=== PATIENT | male | born 1975 | race Two or more races ===

== ENCOUNTER 2021-12-20 05:32 | Emergency (ER) | payer MEDICAID ==
[~2021-12-20] VITALS: Ht 182.9 cm; Wt 79.8 kg
[2021-12-20 06:16] LABS: Basophils # (auto) 0 10 ^3/uL (0-0.2); Basophils % (auto) 0.3 % (0.0-2.0); Eosinophils # (auto) 0.2 10 ^3/uL (0-0.8); Eosinophils % (auto) 1.7 % (0.0-7.0); Hematocrit 43.2 % (41.0-53.0); Lymphocytes # (auto) 1.6 10 ^3/uL (0.4-5.4); Lymphocytes % (auto) 14.8 % (10.0-50.0); Mean Corpuscular Hemoglobin 31.9 pg (28.0-32.0); Mean Corpuscular Hgb Conc. 34.6 g/dL (32.0-36.0); Mean Corpuscular Volume 92.2 fL (80.0-100.0); Monocytes # (auto) 0.5 10 ^3/uL (0-1.3); Monocytes % (auto) 4.5 % (0.0-12.0); Neutrophils # (auto) 8.8 10 ^3/uL (1.6-8.6); Neutrophils % (auto) 78.7 % (37.0-80.0); Nucleated Red Blood Cells % 0.1 %; Red Blood Cells 4.69 10^6/uL (4.5-5.90); Red Cell Distribution Width 11.8 % (11.8-14.3); White Blood Cell 11.1 10^3/uL (4.4-10.8)
[2021-12-20 06:27] VITALS: BP 133/89
[2021-12-20 06:43] LABS: Albumin 3.9 g/dL (3.4-5.0); BUN/Creatinine Ratio 5.4; Calcium 9.2 mg/dL (8.5-10.1); Magnesium 2.1 mg/dL (1.6-2.6); Potassium 3.7 mmol/L (3.5-5.1)
[2021-12-20 06:46] LABS: Bilirubin, Total 1.5 mg/dL (0.2-1.0); Total Protein 7.4 g/dL (6.4-8.2)
[2021-12-20] MEDS ORDERED: ASPirin 81 mg TAB PO ONE (07:30)
[2021-12-20] MEDS ORDERED: methylPREDNISolone SOD SUCC 125 MG/2 ML VL IV ONE (07:45)
[2021-12-20] MEDS ORDERED: cefTRIAXone 1GM/50ML D5W 50 ML IV ONE (07:45)
[2021-12-20 09:16] LABS: Urine Bacteria NONE SEEN /hpf (None Seen); Urine Blood Negative /uL (Negative); Urine Specific Gravity 1.003 (1.001-1.035); Urine WBC <1 /hpf (0 - 3)
[2021-12-20] MEDS ORDERED: CEPH-509 PO (09:54)
[2021-12-20] MEDS ORDERED: HYDR2.5L TOP (09:54)
[2021-12-20] MEDS ORDERED: CLIN300C8 PO (09:54)
== END 2021-12-20 10:23 | disposition home or self-care (01) ==
LOC: ER 05:32
DX: I10 Essential (primary) hypertension (principal); R21 Rash and other nonspecific skin eruption; R07.89 Other chest pain; N45.1 Epididymitis
CPT/HCPCS: 36415; 71250; 76870; 80053; 81001; 83735; 83880; 84484; 85025; 93005; 96365; 96375; 99285; J0696; J2930

== ENCOUNTER 2022-01-24 06:17 | Emergency (ER) | payer MEDICAID ==
[~2022-01-24] VITALS: Ht 182.9 cm; Wt 79.4 kg
[~2022-01-24 06:17] MED LIST: CEPH-509 PO; CLIN300C8 PO; HYDR2.5L TOP
[2022-01-24] MEDS ORDERED: diphenhdrAMINE HCL 50 MG/1 ML VL IV ONE (06:30)
[2022-01-24] MEDS ORDERED: methylPREDNISolone SOD SUCC 125 MG/2 ML VL IV ONE (06:30)
[2022-01-24] MEDS ORDERED: EPINEPHrine HCL 1 MG/1 ML AMP SC ONE (06:30)
[2022-01-24] MEDS ORDERED: SODIUM CHLORIDE 0.9% 1,000 ML IV ONE (07:00)
[2022-01-24] MEDS ORDERED: KETOROLAC TROMETH 30 MG/ML 1ML VIAL IV ONE (07:45)
[2022-01-24 07:56] LABS: Basophils # (auto) 0 10 ^3/uL (0-0.2); Basophils % (auto) 0.3 % (0.0-2.0); Eosinophils # (auto) 0.3 10 ^3/uL (0-0.8); Eosinophils % (auto) 2.3 % (0.0-7.0); Hematocrit 38.2 % (41.0-53.0); Hemoglobin 13.1 g/dL (13.5-17.5); Lymphocytes # (auto) 1.9 10 ^3/uL (0.4-5.4); Lymphocytes % (auto) 16.5 % (10.0-50.0); Mean Corpuscular Hgb Conc. 34.4 g/dL (32.0-36.0); Mean Corpuscular Volume 93.2 fL (80.0-100.0); Monocytes # (auto) 0.7 10 ^3/uL (0-1.3); Monocytes % (auto) 5.9 % (0.0-12.0); Neutrophils # (auto) 8.6 10 ^3/uL (1.6-8.6); Nucleated Red Blood Cells % 0.1 %; Red Cell Distribution Width 12.3 % (11.8-14.3); White Blood Cell 11.5 10^3/uL (4.4-10.8)
[2022-01-24 08:16] LABS: INR 0.97 (0.9-1.15); Partial Thromboplastin Time 25.5 sec (23.6-33.0)
[2022-01-24 08:23] LABS: Albumin 3.5 g/dL (3.4-5.0); Calcium 8.5 mg/dL (8.5-10.1); Potassium 3.5 mmol/L (3.5-5.1)
[2022-01-24 08:26] LABS: BUN/Creatinine Ratio 13.6; Bilirubin, Total 0.5 mg/dL (0.2-1.0); Total Protein 7.2 g/dL (6.4-8.2)
[2022-01-24 10:00] VITALS: BP 137/99
[2022-01-24] MEDS ORDERED: PRED20TA2 PO (11:21)
[2022-01-24] MEDS ORDERED: PANT40TA2 PO (11:21)
== END 2022-01-24 12:05 | disposition home or self-care (01) ==
LOC: ER 06:17
DX: T78.40XA Allergy, unspecified, initial encounter (principal); I10 Essential (primary) hypertension; Z79.2 Long term (current) use of antibiotics; Z79.899 Other long term (current) drug therapy; Y92.89 Other specified places as the place of occurrence of the external cause
CPT/HCPCS: 36415; 71045; 80053; 84484; 85025; 85610; 85730; 96361; 96372; 96374; 96375; 99285; J0171; J1200; J1885; J2930; J7030

== ENCOUNTER → 2023-03-07 | Outpatient (CLI) | payer MEDICAID ==
[~2023-03-07] MED LIST changes: +CLIN300C70 PO; -CLIN300C8 PO; +IOHEXOL 350 MG/ML 100ML IJ ONE; +PANT40TA2 PO; +PRED20TA2 PO
[2023-03-07 15:31] VITALS: BP 103/75; PULSE 76; RESP 16; O2SAT 95
[2023-03-07 15:46] VITALS: BP 114/78; PULSE 84; RESP 16; O2SAT 95
== END | disposition home or self-care (01) ==
LOC: Rad HDHVI 15:05
PROVIDERS: ATTEND Internal Medicine Cardiovascular Disease
DX: R06.02 Shortness of breath (principal); R00.2 Palpitations; I20.0 Unstable angina; I26.99 Other pulmonary embolism without acute cor pulmonale
CPT/HCPCS: 71275; 93306; G0463; Q9967

== ENCOUNTER → 2023-03-27 | Outpatient (CLI) | payer MEDICAID ==
[~2023-03-27] VITALS: Ht 182.9 cm; Wt 81.6 kg
[~2023-03-27] MED LIST changes: -IOHEXOL 350 MG/ML 100ML IJ ONE
== END | disposition home or self-care (01) ==
LOC: Rad HDHVI 12:53
PROVIDERS: ATTEND Internal Medicine Cardiovascular Disease
DX: R00.2 Palpitations (principal); R06.02 Shortness of breath; I20.0 Unstable angina; I10 Essential (primary) hypertension; E78.00 Pure hypercholesterolemia, unspecified; R09.1 Pleurisy; I26.99 Other pulmonary embolism without acute cor pulmonale; Z82.49 Family history of ischemic heart disease and other diseases of the circulatory system
CPT/HCPCS: 78452; 93017; 96374; A9500